=== PATIENT | male | born 1955 | race Caucasian/White ===

== ENCOUNTER 2018-04-12 15:53 | Inpatient (IN) | payer OTHER ==
--- OUTSIDE RECORDS SUMMARY | 2018-04-12 16:34 | XMS REPORT | Clinical Summary ---
:1955 Author Organization [facility] Address [address] [place] [address] Care Team Providers Name Role Phone Gareth Gordillo MD Primary Care Provider Unavailable Allergies No Known Allergies Current Medications Prescription Sig. Disp. Refills Start Date End Date Status carvedilol (COREG) 25 02/25/2016 Active MG tablet losartan (COZAAR) 100 05/07/2016 Active MG tablet spironolactone 02/25/2016 Active (ALDACTONE) 25 MG tablet metFORMIN 05/07/2016 Active (GLUCOPHAGE) 500 MG tablet furosemide (LASIX) 40 05/07/2016 Active MG tablet amLODIPine (NORVASC) 04/02/2016 Active 5 MG tablet ibuprofen-famotidine Take 800 mg Active (DUEXIS) 800-26.6 mg by mouth 2 tablet (two) times a day. lisinopril Take 1 90 tablet 0 08/08/2017 Active (PRINIVIL,ZESTRIL) 20 tablet (20 mg tablet mg total) by mouth daily. simvastatin (ZOCOR) Take 1 90 tablet 1 05/28/2016 05/28/2017 80 MG tablet tablet (80 mg total) by mouth every evening. lisinopril TAKE 1 90 tablet 1 11/19/2016 08/07/2017 Discontinued (PRINIVIL,ZESTRIL) 20 TABLET DAILY mg tablet Active Problems No known active problems Encounters Date Type Specialty Care Team Description 08/07/2017 Refill Sports Medicine Gareth Gordillo MD after 04/11/2017 Family History Medical History Relation Name Comments Old age Father Cancer Mother Relation Name Status Comments Father Mother Social History Tobacco Use Types Packs/Day Years Used Date Former Smoker Tobacco Cessation: Counseling Given: No Alcohol Use Drinks/Week oz/Week Comments Yes social Sex Assigned at Date Recorded Not on file Last Filed Vital Signs Not on file Plan of Treatment Health Maintenance Due Date Last Done Comments COLON CANCER SCREENING 2004 SHINGRIX VACCINE (#1) 2004 ZOSTER VACCINE 2014 INFLUENZA VACCINE 05/03/2018 Results Not on fileafter 04/11/2017 Insurance Payer Benefit Plan / Group Subscriber ID Type Phone Address [employer] PPO OPEN CHOICE xxxxxxxxx PPO y [phone] [id number]
[2018-04-12] MEDS ORDERED: GLUCAGON 1 MG/VIAL IM PRN (16:46)
[2018-04-12] MEDS ORDERED: D50W 25 GM/50 ML SYRINGE IV PRN (16:46)
[2018-04-12 17:22] LABS: Urine Appearance CLOUDY; Urine Bilirubin NEGATIVE (NEG); Urine Blood 3+ (NEG); Urine Color YELLOW; Urine Glucose 1+ (NEG); Urine Protein 2+ (NEG); Urine Specific Gravity 1.025 (1.005-1.030); Urine Urobilinogen 0.2 mg/dL (0.2-1.0); Urine pH 5.5 (5.0-7.0)
[2018-04-12 17:23] LABS: Absolute Lymphocytes (CBC) 1.3 K/uL (0.7-4.9); Absolute Monocytes 1.8 K/uL (0.1-1.3); Absolute Neutrophil 15.8 K/uL (1.8-8.0); Basophils % 0.6 % (0-1.3); Eosinophils % 0.5 % (0-4.4); Hematocrit 39.2 % (39.6-49.0); Lymphocytes % 6.6 % (15.3-44.8); MCH 28.9 pg (27.0-35.0); MCV 85.7 fL (80-100); MPV 9.1 fL (7.6-11.3); Monocytes % 9.7 % (3.3-12.3); RBC Red Blood Cell Count 4.57 M/uL (4.33-5.43)
[2018-04-12] MEDS: NA CHLORIDE 0.9% 1,000 ML IV SCH (17:29)
[2018-04-12] MEDS: CEFTRIAXONE/SWI 1gm 1 GM/10 ML SYR IVP SCH (17:30)
[2018-04-12] MEDS: ACETAMINOPHEN 500 MG TAB PO PRN ×2 (17:30→22:16)
[2018-04-12 17:31] LABS: Albumin 3.9 g/dL (3.4-5.0); Bilirubin Total 0.9 mg/dL (0.2-1.0); Magnesium 1.5 mg/dL (1.8-2.4); Potassium 3.8 mmol/L (3.5-5.1); Protein, Total 7.9 g/dL (6.4-8.2)
[2018-04-12 17:33] LABS: Urine Bacteria >50 /HPF (NONE SEEN); Urine Culture Reflex Order NOT NEEDED; Urine RBC 20-50 /HPF (NONE SEEN); Urine Sperm PRESENT (NONE SEEN)
[2018-04-12] MEDS ORDERED: Magnesium Sulfate 2gm IVPB 2 G/50 ML BAG IV ONE (20:00)
[2018-04-12] MEDS ORDERED: POTASSIUM 25 MEQ EFFERV TAB PO ONE (20:00)
[2018-04-12] MEDS: ENOXAPARIN 40 MG/0.4 ML SQ SCH (20:20)
[2018-04-12] MEDS: INSULIN -REGULAR HUMAN 50 UNIT/0.5 ML ML SQ SCH (21:00)
[2018-04-13] MEDS: ACETAMINOPHEN 500 MG TAB PO PRN ×5 (02:05→23:44)
[2018-04-13] MEDS: NA CHLORIDE 0.9% 1,000 ML IV SCH ×3 (02:06→16:40)
[2018-04-13 03:44] LABS: Magnesium 1.7 mg/dL (1.8-2.4); Potassium 3.7 mmol/L (3.5-5.1)
[2018-04-13] MEDS ORDERED: Magnesium Sulfate 1gm IVPB 1 GM/50 ML BAG IV ONE (04:30)
--- NOTE | 2018-04-13 05:16 | HP ---
Date of Admission: 04/12/2018 Chief Complaint: Fever, chills. History Of Present Illness: This is a 62-year-old very pleasant male patient, who called my office w ith complaints of fever and chills today. The patient was seen on 04/10/2018, which was just about 2 days ago, with urinary problem and he was having some burning sensation on urination and urinary erica quency, that was noted on 03/21/2018. At that time urinalysis was done at office, which showed urina ry tract infection and was treated with Bactrim and his symptoms resolved. On 04/08/2018, he started to have urinary complaints and this time he only had urinary frequency problem. No gross hematuria. No abdominal pain. No fever. No chills. No dysuria. The patient was evaluated at the office 2 da ys ago for this complaint and once again there was no dysuria, only complaint he had was urinary freq uency. Urinalysis at office showed moderate protein, large amount of glucose, large amount of blood but no evidence of any leukocytes or nitrites. Urine culture and urinalysis were ordered just to be on safe side to make sure there was no infection and that result is pending and our plan was to sched ule outpatient abdominal ultrasound and bladder ultrasound, but meanwhile, the patient called today c omplaining of fever and chills with his ongoing urinary complaints, which is urinary frequency, but o nce again no dysuria. After he called office, he was asked to come in right away. He was examined a nd decision was made to admit him to the hospital as he was having these complaints of fever, chills, feeling weak, somewhat lightheaded and was complaining of some back pain in the posterior flank klaudia on. Denies any nausea, vomiting, or diarrhea. No cough, cold, congestion. I was concerned about po ssibility of acute pyelonephritis and also we need to rule out any possibility of underlying stone or any other kidney problems like that. Arrangements were completed for him to be admitted to the hosp ital directly for further evaluation and management of this problem. Allergies: NO KNOWN ALLERGIES. Medications: Amlodipine 10 mg daily; aspirin 81 mg daily; carvedilol 25 mg 2 times a day; losartan 1 00 mg p.o. daily; Duexis 800/26.6 mg 1 tablet 3 times a day; Januvia 100 mg daily; lisinopril 20 mg d aily; metformin 500 mg, the patient takes 2 tablets 2 times a day, which was recently increased from 1 tablet 2 times a day; simvastatin 80 mg p.o. daily. Review of Systems: Genitourinary: As mentioned above. Constitutional: As mentioned above. All other systems reviewed and negative. Past Medical History: Significant for chronic systolic congestive heart failure, hypertension, mixed hyperlipidemia, type 2 diabetes mellitus. Past Surgical History: Presence of AICD, placement in 2008 and surgery for meniscus tear. Family History: Significant for hypertension, lymphoma. Social History: Negative for smoking, alcohol use. Physical Examination: Vital Signs: When he came into office today, his weight 241 pounds, height 71 inches, blood pressure 127/76, respiratory rate 18, pulse 111, temperature 102.8. General: Awake, alert, oriented, not in distress. HEENT: Head atraumatic, normocephalic. Conjunctivae nonerythematous. Sclerae white. Mouth, no thr ush or edema noted. Ears/Nose, no mass, lesion, discharge noted. Neck: Supple. No JVD, lymph nodes, bruit, thyromegaly noted. Lungs: Bilateral good equal air entry. Clear to auscultation. No rhonchi. No rales. Heart: Normal heart sounds, no murmur or gallop. Abdomen: Soft, bowel sounds normal. No guarding, rigidity, tenderness, mass, hepatosplenomegaly, dis tention, or bruit noted. Extremities: No leg edema. No calf tenderness. Skin: No rash, ulcer, cellulitis. Lymphatics: No lymph node enlargement in neck, supraclavicular, infraclavicular region. Neuro: No focal neurological deficit. Chest: Unremarkable. External Genitalia: Deferred. Rectal: Deferred. Laboratory Data: After the patient was admitted to the hospital, further lab results include white c ount 19.1, hemoglobin 13.2, platelets 215. Sodium 140, potassium 3.8, chloride 105, bicarb 27, BUN 1 9, creatinine 1.10, glucose 162, magnesium 1.5. Liver function tests unremarkable. Procalcitonin 0. 49, lactic acid level 2.4. Urinalysis; 3+ blood, positive nitrite, esterase 3+, wbc 20 to 50, bacter ia more than 50. Impression: 1.Acute pyelonephritis. 2.Hypomagnesemia. 3.Anemia. 4.Congestive heart failure, chronic, systolic. 5.Hypertension. 6.Mixed hyperlipidemia. 7.Type 2 diabetes mellitus. Plan: Admit the patient to hospital for further evaluation and management of this problem. The lauren ent is appropriate for inpatient and is expected to spend 2 midnights in hospital. We will continue home medications per order. DVT prophylaxis will be given using Lovenox. IV fluid will be given. I V antibiotics, ceftriaxone will be started. We will follow up on blood culture and urine culture. D epending on blood culture and urine culture result, we will decide definitive antibiotic according to the culture results. We will go ahead and get abdominal and renal ultrasound and if necessary, we m ight order CT scan per kidney stone protocol. Details and plan of treatment discussed with him. I w ill see him tomorrow for followup. GABRIEL/MODL Voice ID: [id number]
[2018-04-13] MEDS ORDERED: KCL 20 MEQ/100 mL IVPB 20 MEQ/100 ML BAG IV SCH ×2 (06:00→20:00)
[2018-04-13] MEDS: INSULIN -REGULAR HUMAN 50 UNIT/0.5 ML ML SQ SCH ×4 (07:30→21:00)
--- NOTE | 2018-04-13 09:03 | RAD REPORT ---
EXAM DESCRIPTION: US - Renal Ultrasound-Complete - 04/13/2018 8:32 am CLINICAL HISTORY: . Hematuria/pyelonephritis COMPARISON: 2008 FINDINGS: The right kidney measures 13 cm with a normal echotexture. The left kidney measures 13 cm with a normal echotexture. A 1.3 centimeter cyst extends off of the le ft kidney. Hydronephrosis is not seen. A renal abscess is not visualized IMPRESSION: 1.3 centimeter left renal cyst
--- NOTE | 2018-04-13 09:08 | RAD REPORT ---
EXAM DESCRIPTION: US - Urinary Bladder - 04/13/2018 8:32 am CLINICAL HISTORY: Hematuria FINDINGS: Bladder volume equals 190 cc. A bladder mass is not seen. A bladder calculus is not visualized. The bladder wall does not appear to be significantly thickened. No ascites is noted. IMPRESSION: Unremarkable bladder ultrasound
--- NOTE | 2018-04-13 09:15 | RAD REPORT ---
EXAM DESCRIPTION: CT - Abdomen Pelvis Wo Contrast - 04/13/2018 8:34 am CLINICAL HISTORY: Abdominal pain hematuria COMPARISON: 2008 TECHNIQUE: Computed axial tomography of the abdomen and pelvis was obtained. IV and oral contrast we re not requested. All CT scans are performed using dose optimization technique as appropriate and may include automated exposure control or mA/KV adjustment according to patient size. FINDINGS: The evaluation of solid organs, vessels and bowel is limited secondary to the lack of con trast administration. The liver, spleen, pancreas, adrenals and right kidney appear grossly normal. A 1.3 centimeter cyst e xtends off of the left kidney. The appendix is normal. There is no evidence of diverticulitis. Moderate anterior subluxation of L5 on S1 is seen with spondylolysis at L5. Postsurgical changes involve the stomach IMPRESSION: No acute abnormality is displayed.
[2018-04-13] MEDS: CARVEDILOL 25 MG TAB PO SCH ×2 (09:28→21:12)
[2018-04-13] MEDS: CEFTRIAXONE/SWI 1gm 1 GM/10 ML SYR IVP SCH ×2 (09:29→21:16)
[2018-04-13] MEDS: Levofloxacin500mg IV 500 MG/100 ML BAG IV SCH (10:31)
[2018-04-13 17:32] LABS: Absolute Lymphocytes (CBC) 1.3 K/uL (0.7-4.9); Absolute Neutrophil 11.6 K/uL (1.8-8.0); Basophils % 0.5 % (0-1.3); Eosinophils % 0.2 % (0-4.4); Hematocrit 34.6 % (39.6-49.0); Lymphocytes % 9.5 % (15.3-44.8); MCH 29.1 pg (27.0-35.0); MCV 84.3 fL (80-100); MPV 8.9 fL (7.6-11.3); Monocytes % 6.9 % (3.3-12.3); RBC Red Blood Cell Count 4.11 M/uL (4.33-5.43)
[2018-04-13 17:45] LABS: Magnesium 2.1 mg/dL (1.8-2.4); Potassium 3.8 mmol/L (3.5-5.1)
[2018-04-13] MEDS: ENOXAPARIN 40 MG/0.4 ML SQ SCH (21:13)
[2018-04-13] MEDS: ATORVASTATIN 40 MG TAB PO SCH (21:15)
[2018-04-14] MEDS: NA CHLORIDE 0.9% 1,000 ML IV SCH (00:48)
--- NOTE | 2018-04-14 01:28 | PN ---
Date of Progress Note: 04/13/2018 Subjective: The patient was seen this morning for followup and he was seen this evening as well. Th is morning when I saw him, he had no new complaints. No nausea or vomiting. No chest pain. No shor tness of breath. He still had some urinary frequency and urgency, but it was somewhat better. No dy suria and no hematuria. When I saw him this evening, he was feeling significantly better. His tempe rature has started to come down throughout the day today, and he still has some urinary urgency but i t is much better. No dysuria. As the temperature came down during the course of day today, he start ed to feel much better. Objective: Vital Signs: Reviewed. HEENT Examination: Unremarkable. Lungs: Clear to auscultation. Heart: Heart sounds normal. Abdomen: Soft. Bowel sounds normal. No guarding, rigidity, tenderness, or distention. Back: No evidence of CVA tenderness and his back pain problem has improved. Extremities: No leg edema. Laboratory Data: Sodium 137, potassium 3.7, chloride 103, bicarb 26, BUN 15, creatinine 1, glucose 1 93, magnesium 1.7. The patient had repeat CBC and chemistry this afternoon, and results reviewed. H is white count is down to 14,000 range. Blood culture; positive Gram-negative rods. Urine culture; Gram-negative rods. Definite identification and sensitivity results pending. His CAT scan of abdome n without contrast; it was ordered to be done per kidney stone protocol, and I did talk to radiologis t and he reported there is no evidence of any kidney stone or any hydronephrosis. Renal and bladder ultrasound, unremarkable except the renal cyst. Impression: 1.Sepsis. 2.Acute pyelonephritis. 3.Hypertension. 4.Diabetes mellitus. Plan: We will continue current medication which is ceftriaxone. We will add Levaquin as per order t his morning. We will continue these 2 different antibiotics until we get final report on the culture and sensitivity result, and then we will decide culture specific antibiotics. Continue IV fluid. W e will repeat blood work tomorrow. Ambulation was encouraged. Continue current DVT prophylaxis. Th e patient is expected to spend weekend in the hospital. Earliest discharge depending on his clinical condition will be beginning part of next week, and details on plan of treatment discussed with him. This evening when I saw him, he was feeling much better since his temperature came down. I did talk to patient and informed him that he will need to have evaluation done with help of urologist on an o utpatient basis after he recovers from this illness. GABRIEL/MODL Voice ID: [id number] Report ID: [id number]
[2018-04-14 05:08] LABS: Absolute Lymphocytes (CBC) 1.7 K/uL (0.7-4.9); Absolute Neutrophil 9.8 K/uL (1.8-8.0); Basophils % 1.1 % (0-1.3); Eosinophils % 0.3 % (0-4.4); Hematocrit 31.9 % (39.6-49.0); MCH 29.7 pg (27.0-35.0); MCV 83.8 fL (80-100); MPV 9.5 fL (7.6-11.3); Monocytes % 8.3 % (3.3-12.3); RBC Red Blood Cell Count 3.81 M/uL (4.33-5.43)
[2018-04-14 05:21] LABS: Magnesium 2.1 mg/dL (1.8-2.4); Potassium 3.5 mmol/L (3.5-5.1)
[2018-04-14] MEDS ORDERED: POTASSIUM 25 MEQ EFFERV TAB PO ONE (07:00)
[2018-04-14] MEDS: INSULIN -REGULAR HUMAN 50 UNIT/0.5 ML ML SQ SCH ×4 (07:30→20:40)
[2018-04-14] MEDS: Levofloxacin500mg IV 500 MG/100 ML BAG IV SCH (08:28)
[2018-04-14] MEDS: CARVEDILOL 25 MG TAB PO SCH ×2 (08:28→20:39)
[2018-04-14] MEDS: SITAGLIPTIN PHOS 100 MG TAB PO SCH (08:28)
[2018-04-14] MEDS: CEFTRIAXONE/SWI 1gm 1 GM/10 ML SYR IVP SCH ×2 (08:28→20:41)
[2018-04-14] MEDS: ACETAMINOPHEN 500 MG TAB PO PRN ×2 (08:29→18:02)
[2018-04-14] MEDS: METFORMIN HCL 500 MG TAB PO SCH ×2 (08:29→20:39)
--- NOTE | 2018-04-14 12:41 | PN ---
Date of Progress Note: 04/14/2018 Subjective: The patient was seen this morning for followup. He was lying in bed, not in distress, f eeling much better. No shortness of breath. Denies any dysuria. His urinary frequency and urgency problem have resolved. Objective: Vital Signs: Reviewed. HEENT: Unremarkable. Lungs: Clear to auscultation. Heart: Heart sounds normal. Abdomen: Soft, bowel sounds normal. No guarding, rigidity, tenderness, or distention. Extremities: No leg edema. Laboratory Data: White count 12.7, hemoglobin 11.3, platelets 161. Sodium 137, potassium 3.5, chlor elaine 104, bicarb 26, BUN 12, creatinine 1, glucose 216. Urine culture and blood culture growing gram- negative rods, definite result pending. Impression: 1.Sepsis. 2.Acute pyelonephritis. 3.Hypertension. 4.Diabetes mellitus. Plan: We will discontinue IV fluid. Continue ceftriaxone and Levaquin until we get the final cultur e results, then we will decide which particular antibiotic to continue. The patient will remain in [facility] over the weekend and I will see him tomorrow for followup. We will start his diabetes me dication, metformin and Januvia per order, continue sliding scale insulin. His last temperature this morning was 97.9 and blood pressure is stable. Ambulation was encouraged. I did talk to the patien t about importance of seeing urologist on outpatient basis for further evaluation and management. GABRIEL/MODL Voice ID: [id number] Report ID: [id number]
[2018-04-14] MEDS: ATORVASTATIN 40 MG TAB PO SCH (20:39)
[2018-04-14] MEDS: ENOXAPARIN 40 MG/0.4 ML SQ SCH (20:39)
[2018-04-14] MEDS: DIPHENHYDRAMINE 25 MG TAB/CAP PO PRN (21:25)
[2018-04-15] MEDS: ACETAMINOPHEN 500 MG TAB PO PRN ×4 (03:49→20:39)
[2018-04-15 04:59] LABS: Potassium 3.7 mmol/L (3.5-5.1)
[2018-04-15] MEDS ORDERED: POTASSIUM CL SA 10 MEQ TAB PO ONE (05:28)
[2018-04-15] MEDS: INSULIN -REGULAR HUMAN 50 UNIT/0.5 ML ML SQ SCH ×4 (07:30→20:42)
[2018-04-15] MEDS: METFORMIN HCL 500 MG TAB PO SCH ×2 (07:52→20:39)
[2018-04-15] MEDS: CARVEDILOL 25 MG TAB PO SCH ×2 (07:52→20:39)
[2018-04-15] MEDS: Levofloxacin500mg IV 500 MG/100 ML BAG IV SCH (07:53)
[2018-04-15] MEDS: SITAGLIPTIN PHOS 100 MG TAB PO SCH (07:53)
[2018-04-15] MEDS: CEFTRIAXONE/SWI 1gm 1 GM/10 ML SYR IVP SCH ×2 (07:53→20:40)
[2018-04-15] MEDS: LISINOPRIL 20 MG TAB PO SCH (08:27)
--- NOTE | 2018-04-15 12:54 | PN ---
Date of Progress Note: 04/15/2018 Subjective: The patient was seen this morning for followup. Lying in bed, not in distress denies an y complaints. No diarrhea. No abdominal pain. Had a bowel movement on a daily basis for last 2-3 d ays. No chest pain. No shortness of breath. No back pain. No urinary complaints. Objective: Vital signs: Reviewed. He still had a low-grade fever last night, around 4 a.m. This m orning he had 100.2 degree Fahrenheit temperature. Blood pressure was 146/66 at that time. Last blo od pressure 137. HEENT: Unremarkable. Lungs: Clear to auscultation. Heart: Heart sounds normal. Abdomen: Soft. Bowel sounds normal. No guarding, rigidity, tenderness, or distention. Extremities: No leg edema. Laboratory Data: Sodium 139, potassium 3.7, chloride 106, bicarb 25, BUN 12, creatinine 0.90, glucos e 158. Fingerstick blood sugar readings reviewed. Urine culture growing E. coli. Blood culture, gr am-negative rods. Final result pending. Impression: 1.Sepsis. 2.Acute pyelonephritis. 3.Hypertension. 4.Type 2 diabetes mellitus. Plan: We will continue current medications. We will go ahead and continue Rocephin and Levaquin. A ntihypertensive medication lisinopril will be started. We will continue metformin, Januvia, and slid ing scale insulin for diabetes control. Ambulation was encouraged. We will keep the patient in hosp ital on IV antibiotics over the weekend. Earliest possible discharge is day after tomorrow if he is afebrile. If he continues to have fever, we will have to do imaging studies of kidneys to make sure that he is not having any complications from this pyelonephritis. Details were discussed with the patient. GABRIEL/MODL Voice ID: [id number] Report ID: [id number]
[2018-04-15] MEDS: ATORVASTATIN 40 MG TAB PO SCH (20:38)
[2018-04-15] MEDS: DIPHENHYDRAMINE 25 MG TAB/CAP PO PRN (20:39)
[2018-04-15] MEDS: ENOXAPARIN 40 MG/0.4 ML SQ SCH (20:39)
[2018-04-16] MEDS: ACETAMINOPHEN 500 MG TAB PO PRN ×2 (03:57→15:13)
[2018-04-16 04:59] LABS: Absolute Lymphocytes (CBC) 1.5 K/uL (0.7-4.9); Absolute Monocytes 0.8 K/uL (0.1-1.3); Absolute Neutrophil 4.7 K/uL (1.8-8.0); Basophils % 0.8 % (0-1.3); Eosinophils % 2.6 % (0-4.4); Hematocrit 32.8 % (39.6-49.0); Lymphocytes % 20.8 % (15.3-44.8); MCH 29.6 pg (27.0-35.0); MCV 83.3 fL (80-100); MPV 8.9 fL (7.6-11.3); Monocytes % 11.7 % (3.3-12.3); RBC Red Blood Cell Count 3.93 M/uL (4.33-5.43)
[2018-04-16 05:10] LABS: Magnesium 1.8 mg/dL (1.8-2.4); Potassium 3.8 mmol/L (3.5-5.1)
[2018-04-16] MEDS ORDERED: POTASSIUM 25 MEQ EFFERV TAB PO ONE (05:31)
[2018-04-16] MEDS ORDERED: MAGNESIUM SULFATE 1 gm IVPB 1 GM/100 ML BAG IV ONE (05:31)
[2018-04-16] MEDS ORDERED: Magnesium Sulfate 1gm IVPB 1 GM/50 ML BAG IV ONE (06:00)
[2018-04-16] MEDS: INSULIN -REGULAR HUMAN 50 UNIT/0.5 ML ML SQ SCH ×4 (07:30→20:59)
[2018-04-16] MEDS: SITAGLIPTIN PHOS 100 MG TAB PO SCH (07:33)
[2018-04-16] MEDS: METFORMIN HCL 500 MG TAB PO SCH ×2 (07:33→16:28)
[2018-04-16] MEDS: CARVEDILOL 25 MG TAB PO SCH ×2 (07:38→21:05)
[2018-04-16] MEDS: CEFTRIAXONE/SWI 1gm 1 GM/10 ML SYR IVP SCH ×2 (07:38→21:03)
[2018-04-16] MEDS: LISINOPRIL 20 MG TAB PO SCH (07:38)
[2018-04-16] MEDS: Levofloxacin500mg IV 500 MG/100 ML BAG IV SCH (10:00)
--- NOTE | 2018-04-16 14:52 | PN ---
Date of Progress Note: 04/16/2018 Subjective: The patient was seen this morning for followup. No new complaints, problems reported by the patient. He was feeling much better this morning. He was sitting in chair. Denied any complai nts. No back pain. No shortness of breath. No fevers, chills, nausea, vomiting. No abdominal pain . No dysuria or hematuria. No urinary frequency. Objective: Vital signs: Reviewed. He still has low-grade fever. The last temperature was 99.2 deg rony Fahrenheit. HEENT: Examination unremarkable. Lungs: Clear to auscultation. No rhonchi. No rales. Heart: Heart sounds normal. Abdomen: Soft, bowel sounds normal. No guarding, rigidity, tenderness, or distention. Extremities: No leg edema. Laboratory Data: White count 7.3, hemoglobin 11.6, platelets 203. Sodium 138, potassium 3.8, chlori de 103, bicarb 26, BUN 12, creatinine 1, glucose 190, magnesium 1.8. Fingerstick blood sugar reading s reviewed. Blood culture, all the blood cultures came back growing E. coli and urine culture growin g E. coli. Impression: 1.Sepsis, organism Escherichia coli. 2.Acute pyelonephritis, organism Escherichia coli. 3.Hypertension. 4.Diabetes mellitus. Plan: We will go ahead and continue current antibiotic, which is Rocephin and Levaquin. Continue cu rrent antihypertensive and diabetes management. Possible discharge to go home in next day or 2 days depending on his condition. Details of plan of treatment discussed with the patient. GABRIEL/MODL Voice ID: [id number] Report ID: [id number]
[2018-04-16] MEDS: ENOXAPARIN 40 MG/0.4 ML SQ SCH (21:04)
[2018-04-16] MEDS: ATORVASTATIN 40 MG TAB PO SCH (21:07)
[2018-04-16] MEDS: DIPHENHYDRAMINE 25 MG TAB/CAP PO PRN (21:08)
[2018-04-17] MEDS: INSULIN -REGULAR HUMAN 50 UNIT/0.5 ML ML SQ SCH ×2 (07:30→11:17)
[2018-04-17] MEDS: SITAGLIPTIN PHOS 100 MG TAB PO SCH (08:47)
[2018-04-17] MEDS: CARVEDILOL 25 MG TAB PO SCH (08:48)
[2018-04-17] MEDS: METFORMIN HCL 500 MG TAB PO SCH (08:48)
[2018-04-17] MEDS: CEFTRIAXONE/SWI 1gm 1 GM/10 ML SYR IVP SCH (08:49)
[2018-04-17] MEDS: LISINOPRIL 20 MG TAB PO SCH (08:51)
[2018-04-17] MEDS: Levofloxacin500mg IV 500 MG/100 ML BAG IV SCH (08:56)
--- NOTE | 2018-04-18 06:54 | DS ---
Date of Discharge: 04/17/2018 Disposition: Discharged to go home. Physical Examination: HEENT: Unremarkable. Lungs: Clear to auscultation. Heart: Sounds normal. Abdomen: Soft. Bowel sounds normal. No guarding, rigidity, tenderness, or distention. Extremities: No leg edema. Hospital Course: This is a 62-year-old male patient, admitted to the hospital with complaints of fev er and chills. Please see dictated H and P for more information. After the patient was evaluated at the office, he was admitted to the hospital. His urinalysis was abnormal, consistent with urinary t ract infection. Blood culture and urine culture were drawn, and he was started on empiric antibiotic which was ceftriaxone. His initial white count was 19,000. His blood culture came back positive fo r Gram-negative rods and we added Levaquin the day after admission and the ceftriaxone was continued. With this combination of two different antibiotic therapy, he started to feel better, his temperatu re slowly started coming down, and he started feeling overall better. His appetite returned and he h ad some back pain when he came in, which completely resolved and his urinary frequency completely res olved. He never had any dysuria. He started tolerating diet very well, ambulating well. His home m edications were continued per order. Urine culture and blood culture came back E. coli, and this curtis teria was sensitive to multiple different antibiotics including ceftriaxone and Levaquin that patient was receiving during this hospitalization. CAT scan of the abdomen per kidney stone protocol was or dered and that came back negative for any kidney stone or any other acute findings. It did show pres ence of benign-appearing renal cyst and renal ultrasound also revealed the same finding. Bladder ult rasound was negative. I have informed the patient that he should follow up with the urologist for fu rther workup and he should follow up with urologist in about 3 weeks. Names of local urologists give n to him and he will talk to his family members and then make a decision which particular urologist veronica puente would like to see and if he needs help to schedule appointment he will contact my office. The lauren ent was discharged to go home in stable condition with following discharge medications and instructio ns. 1.Continue all prior home medications and he was made aware that there is a good possibility that florencia lozada's medication list may not be accurate and he needs to continue to take his medication at home the way he was taking prior to this admission. 2.Take Levaquin 500 mg p.o. daily for 2 weeks. 3.Follow up at my office in 2 weeks and follow up with urologist in 3 weeks. Laboratory Data: Labs done during this hospitalization include white count when he came in was 19.1, hemoglobin 13.2, platelets 215, last white count yesterday 7.3, hemoglobin 11.6, platelets 203. Viktoria brea was unremarkable except magnesium was low which was corrected. Final Diagnoses: 1.Sepsis, organism Escherichia coli. 2.Acute pyelonephritis, organism Escherichia coli. 3.Anemia, unspecified. 4.Hypomagnesemia. 5.Congestive heart failure, chronic, systolic. 6.Hypertension. 7.Mixed hyperlipidemia. 8.Type 2 diabetes mellitus. GABRIEL/MODL Voice ID: [id number] Report ID: [id number]
== END 2018-04-17 12:43 | disposition home or self-care (01) | DRG 872 ==
LOC: 2ND 16:31
PROVIDERS: ADMIT Internal Medicine; ATTEND Internal Medicine
DX: A41.53 Sepsis due to Serratia (principal); N10 Acute pyelonephritis; I50.22 Chronic systolic (congestive) heart failure; N28.1 Cyst of kidney, acquired; D64.9 Anemia, unspecified; E83.42 Hypomagnesemia; I11.0 Hypertensive heart disease with heart failure; E78.2 Mixed hyperlipidemia; E11.9 Type 2 diabetes mellitus without complications; Z79.84 Long term (current) use of oral hypoglycemic drugs; Z79.82 Long term (current) use of aspirin; Z95.810 Presence of automatic (implantable) cardiac defibrillator
CPT/HCPCS: 36415; 74176; 76770; 76857; 80048; 80053; 81001; 82962; 83605; 83735; 84145; 85025; 87040; 87077; 87086; 87088; 87186; 87205; J0696; J1650; J3475; J7030

== ENCOUNTER 2020-08-27 10:50 | Emergency (ER) | payer OTHER ==
--- OUTSIDE RECORDS SUMMARY | 2020-08-27 11:13 | XMS REPORT | Continuity of Care Document ---
:1955 Author Organization [facility] t Address [address] [place] [address] [address] [place] [address] Care Team Providers Name Role Phone Rand MCGARRY, Yris. Primary Care Physician Provider, Urgent Care Attending Clinician Unavailable Yris Gordillo MD. Attending Clinician Payers Payer Name Policy Type Policy Effective Date Expiration Date Sour ce Number MEDICAREMEDICARE PART [id number] 2019 Main[employer] aaron Yris AND 00:00:00 [place] [id number] [place] [place] P[facility] OPEN [id number] 2000 [place] [id number] 2001-P 00:00:00 Met alycia Khan Problems This patient has no known problems. Allergies, Adverse Reactions, Alerts This patient has no known allergies or adverse reactions. Family History Family Member Diagnosis Comments Start Date Stop Date Source Natural father Old age [facility] thodist Natural mother Cancer [facility] thodi Social History Social Habit Start Date Stop Date Quantity Comments Source Sex Assigned At [facility] ethodist Tobacco use and 2020-06-20 2020-06-20 Never used [facility] ethodist exposure 00:00:00 00:00:00 Alcohol intake 2020-06-20 2020-06-20 Current drinker [place] [facility] 00:00:00 00:00:00 of alcohol (finding) Alcohol Comment 2016-05-28 2016-05-28 social [facility] ethodist 00:00:00 00:00:00 History of 1973-02-04 2015-09-11 Current smoker [place] [facility] tobacco use 00:00:00 00:00:00 Smoking Status Start Date Stop Date Source Former smoker 2020-06-20 00:00:00 2020-06-20 00:00:00 Arthur Myles Medications Ordered Filled Start Stop Current Ordering Indication Dosage Frequency Signature Comments Components Source Medication Medication Date Date Medication? Clinician (SIG) Name Name ibuprofen-f Yes 800mg Q.5D Take 800 [place] amotidine 9-18 mg by [facility] (DUEXIS) 10:58: mouth 2 st 800-26.6 mg 01 (two) tablet times a day. gabapentin Yes Arthur (NEURONTIN) 8-26 [facility] 100 mg 00:00: st capsule 00 simvastatin Yes Judy torres (ZOCOR) 80 7-28 [facility] MG tablet 00:00: st 00 lisinopril 2016-10 Yes 20mg QD Take 1 [place] (PRINIVIL,Z 1-06 tablet (20 Me [facility] ESTRIL) 20 00:00: mg total) st mg tablet 00 by mouth daily. losartan Yes Arthur (COZAAR) 8-05 [facility] 100 MG 00:00: st tablet 00 metFORMIN Yes Arthur (GLUCOPHAGE 8-05 [facility] ) 500 MG 00:00: st tablet 00 furosemide Yes Gibson (LASIX) 40 8-05 [facility] MG tablet 00:00: st 00 amLODIPine Yes [place] (NORVASC) 5 7-01 [facility] MG tablet 00:00: st 00 carvedilol Yes Gibson (COREG) 25 5-25 [facility] MG tablet 00:00: st 00 spironolact Yes Judy torres one 5-25 [facility] (ALDACTONE) 00:00: st 25 MG 00 tablet Vital Signs Vital Name Observation Time Observation Value Comments Source Systolic blood 2020-06-20 10:54:00 106 mm[Hg] [place] [facility] pressure Diastolic blood 2020-06-20 10:54:00 67 mm[Hg] [place] [facility] pressure Heart rate 2020-06-20 10:54:00 60 /min Arthur Myles Respiratory rate 2020-06-20 10:54:00 20 /min Chase Mlyes Body weight 2020-06-20 10:54:00 98.884 kg Arthur Myles BMI 2020-06-20 10:54:00 30.40 kg/m2 Arthur Myles Procedures Procedure Date / Time Performing Clinician Source Performed [place] ARTHROCENTESIS 2020-07-04 13:20:00 Guillermina Gordillo Jewish ASPIR&/INJ MAJOR JT/BURSA W/US [place] ARTHROCENTESIS 2020-06-27 13:00:00 Guillermina Gordillo Jewish ASPIR&/INJ MAJOR JT/BURSA W/US [place] ARTHROCENTESIS 2020-06-20 10:40:00 Guillermina Gordillo Jewish ASPIR&/INJ MAJOR JT/BURSA W/US Plan of Care Planned Activity Planned Date Details Comments Source Future Scheduled 2020-05-03 INFLUENZA VACCINE Judy torres [facility] Test 00:00:00 [code = INFLUENZA VACCINE] Future Scheduled 2019 65+ PNEUMOCOCCAL Arthur [facility] Test 00:00:00 VACCINE (1 of 1 - PPSV23) [code = 65+ PNEUMOCOCCAL VACCINE (1 of 1 - PPSV23)] Future Scheduled 2004 COLONOSCOPY SCREENING Ho [facility] Test 00:00:00 [code = COLONOSCOPY SCREENING] Future Scheduled 2004 SHINGLES VACCINES (#1) [place] [facility] Test 00:00:00 [code = SHINGLES VACCINES (#1)] Encounters Start End Encounter Admission Attending Care Care Encounter Source Date/Time Date/Time Type Type Clinicians Facility Department ID 2020-08-19 2020-08-19 Urgent Provider, [facility] [id number] 13:24:20 13:44:20 [facility] [id number] [facility] [id number] Professio [id number] nal [address] 2020-07-04 2020-07-04 Outpatient [facility] [id number] [place] 00:00:00 00:00:00 , GUILLERMINA [address] 2020-06-27 2020-06-27 Outpatient [facility] [id number] [place] 00:00:00 00:00:00 GUILLERMINA [address] 2020-06-20 2020-06-20 Outpatient [facility] [id number] [place] 00:00:00 00:00:00 , GUILLERMINA [address] Results Test Description Test Time Test Comments Results Result Sour e Comments Large Joint Guillermina Gordillo [place] Arthrocentesis: 2 07/04/2020 1:24 Jewish knee, Bilateral 13:20:00 PMLarge Joint knee Arthrocentesis: knee, Bilateral kneeConsent given by: patientSupporting DocumentationIndicatio ns: pain Procedure DetailsUltrasound guided: yesLocation: knee - Bilateral knee Right side:Needle size: 25 GApproach: lateralRight knee medications administered: 2 mL sodium hyaluronate (viscosup) 30 mg/2 mLPatient tolerance: patient tolerated the procedure well with no immediate complications Left side:Needle size: 25 GApproach: lateralLeft knee medications administered: 2 mL sodium hyaluronate (viscosup) 30 mg/2 mLPatient tolerance: patient tolerated the procedure well with no immediate complications Large Joint 2020-06-04 Guillermina Gordillo [place] Arthrocentesis: 5 06/27/2020 1:32 Jewish knee, Bilateral 13:00:00 PMLarge Joint knee Arthrocentesis: knee, Bilateral kneeConsent given by: patientSupporting DocumentationIndicatio ns: pain Procedure DetailsUltrasound guided: yesLocation: knee - Bilateral knee Right side:Needle size: 25 GApproach: lateralRight knee medications administered: 2 mL sodium hyaluronate (viscosup) 30 mg/2 mLPatient tolerance: patient tolerated the procedure well with no immediate complications Left side:Needle size: 25 GApproach: lateralLeft knee medications administered: 2 mL sodium hyaluronate (viscosup) 30 mg/2 mLPatient tolerance: patient tolerated the procedure well with no immediate complications Large Joint 2020-06-03 Guillermina Gordillo [place] Arthrocentesis: 8 06/20/2020 11:33 Jewish knee, Bilateral 10:40:00 AMLarge Joint knee Arthrocentesis: knee, Bilateral kneeConsent given by: patientSupporting DocumentationIndicatio ns: pain Procedure DetailsUltrasound guided: yesLocation: knee - Bilateral knee Right side:Needle size (right): 18.Approach: lateralRight knee medications administered: 2 mL sodium hyaluronate (viscosup) 30 mg/2 mLAspirate amount: 27 mLPatient tolerance: patient tolerated the procedure well with no immediate complications Left side:Needle size (left): 18.Approach: lateralLeft knee medications administered: 2 mL sodium hyaluronate (viscosup) 30 mg/2 mLAspirate amount: 20 mLPatient tolerance: patient tolerated the procedure well with no immediate complications
--- OUTSIDE RECORDS SUMMARY | 2020-08-27 11:13 | XMS REPORT | Clinical Summary ---
:1955 Author Organization [facility] Address [address] [place] [address] Care Team Providers Name Role Phone Guy Gordillo MD Primary Care Provider Allergies No Known Active Allergies Medications Medication Sig Dispensed Refills Start Date End Date Status carvedilol (COREG) 25 MG 0 02/25/2016 Active tablet losartan (COZAAR) 100 MG 0 05/07/2016 Active tablet spironolactone 0 02/25/2016 Acti ve (ALDACTONE) 25 MG tablet metFORMIN (GLUCOPHAGE) 0 05/07/2016 Active 500 MG tablet furosemide (LASIX) 40 MG 0 05/07/2016 Active tablet amLODIPine (NORVASC) 5 0 04/02/2016 Active MG tablet ibuprofen-famotidine Take 800 mg by 0 Active (DUEXIS) 800-26.6 mg mouth 2 (two) tablet times a day. lisinopril Take 1 tablet 90 tablet 0 08/08/2017 Acti ve (PRINIVIL,ZESTRIL) 20 mg (20 mg total) by tablet mouth daily. gabapentin (NEURONTIN) 0 05/28/2020 Active 100 mg capsule simvastatin (ZOCOR) 80 0 04/29/2020 Active MG tablet Active Problems No known active problems Encounters Date Type Specialty Care Team Description 07/04/2020 Office Visit Sports Gareth Muro MD osteoarthritis of knee (Primary Dx) 07/04/2020 Travel 06/27/2020 Office Visit Gareth Martino MD osteoarthritis of knee (Primary Dx) 06/27/2020 Travel 06/20/2020 Office Visit Gareth Martino, MD osteoarthritis of knee (Primary Dx) 06/20/2020 Travel 06/13/2020 Travel after 08/27/2019 Surgical History Surgery Date Site/Laterality Comments TONSILLECTOMY Medical History Medical History Date Comments Arthritis Diabetes mellitus (HCC) Hypertension Diabetes (HCC) 3 years ago Family History Medical History Relation Name Comments Old age Father Cancer Mother Rosamaria White Ballard Had can cer Relation Name Status Comments Father Mother Rosamaria Vargus Ballard Social History Tobacco Use Types Packs/Day Years Used Date Former Smoker 0 0 02/04/1973 - 1 11/12/2014 Smokeless Tobacco: Never Used Tobacco Cessation: Counseling Given: No Alcohol Use Drinks/Week oz/Week Comments Yes 0 Glasses of wine 0.0 social 0 Cans of beer 0 Shots of liquor 0 Standard drinks or equivalent Sex Assigned at Date Recorded Not on file Last Filed Vital Signs Vital Sign Reading Time Taken Comments Blood Pressure 106/67 06/20/2020 10:54 AM CDT Pulse 60 06/20/2020 10:54 AM CDT Temperature - - Respiratory Rate 20 06/20/2020 10:54 AM CDT Oxygen Saturation - - Inhaled Oxygen Concentration - - Weight 98.9 kg (218 lb) 06/20/2020 10:54 AM CDT Height - - Body Mass Index 30.4 05/28/2016 1:43 PM CDT Plan of Treatment Health Maintenance Due Date Last Done Comments COLONOSCOPY SCREENING 2004 SHINGLES VACCINES (#1) 2004 65+ PNEUMOCOCCAL VACCINE (1 of 1 - PPSV23) 2019 INFLUENZA VACCINE 05/03/2020 Procedures Procedure Name Priority Date/Time Associated Diagnosis Comme nts [place] ARTHROCENTESIS Routine 07/04/2020 1:20 Bilateral primary R esults for this ASPIR&/INJ MAJOR PM CDT osteoarthritis of proced ure are in JT/BURSA W/US knee the results section. [place] ARTHROCENTESIS Routine 06/27/2020 1:00 Bilateral primary R esults for this ASPIR&/INJ MAJOR PM CDT osteoarthritis of proced ure are in JT/BURSA W/US knee the results section. HI ARTHROCENTESIS Routine 06/20/2020 10:40 Bilateral primary R esults for this ASPIR&/INJ MAJOR AM CDT osteoarthritis of proced ure are in JT/BURSA W/US knee the results section. after 08/27/2019 Results Large Joint Arthrocentesis: knee, Bilateral knee (07/04/2020 1:20 PM CDT) Specimen Narrative Performed At Gareth Gordillo MD 0 1:24 PM Large Joint Arthrocentesis: knee, Bilate ral knee Consent given by: patient Supporting Documentation Indications: pain Procedure Details Ultrasound guided: yes Location: knee - Bilateral knee Right side: Needle size: 25 G Approach: lateral Right knee medications administered: 2 mL sodium hyalu ronate (viscosup) 30 mg/2 mL Patient tolerance: patient tolerated the procedure wel l with no immediate complications Left side: Needle size: 25 G Approach: lateral Left knee medications administered: 2 mL sodium hyalur addy (viscosup) 30 mg/2 mL Patient tolerance: patient tolerated the procedure wel l with no immediate complications Large Joint Arthrocentesis: knee, Bilateral knee (06/27/2020 1:00 PM CDT) Specimen Narrative Performed At Gareth Gordillo MD 0 1:32 PM Large Joint Arthrocentesis: knee, Bilate ral knee Consent given by: patient Supporting Documentation Indications: pain Procedure Details Ultrasound guided: yes Location: knee - Bilateral knee Right side: Needle size: 25 G Approach: lateral Right knee medications administered: 2 mL sodium hyalu ronate (viscosup) 30 mg/2 mL Patient tolerance: patient tolerated the procedure wel l with no immediate complications Left side: Needle size: 25 G Approach: lateral Left knee medications administered: 2 mL sodium hyalur addy (viscosup) 30 mg/2 mL Patient tolerance: patient tolerated the procedure wel l with no immediate complications Large Joint Arthrocentesis: knee, Bilateral knee (06/20/2020 10:40 AM CDT) Narrative Performed At Gareth Gordillo MD 0 11:33 AM Large Joint Arthrocentesis: knee, Bilate ral knee Consent given by: patient Supporting Documentation Indications: pain Procedure Details Ultrasound guided: yes Location: knee - Bilateral knee Right side: Needle size (right): 18. Approach: lateral Right knee medications administered: 2 mL sodium hyalu ronate (viscosup) 30 mg/2 mL Aspirate amount: 27 mL Patient tolerance: patient tolerated the procedure wel l with no immediate complications Left side: Needle size (left): 18. 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
--- OUTSIDE RECORDS SUMMARY | 2020-08-27 11:13 | XMS REPORT | Summary of Care ---
:1955 Author Organization [facility] Address [address] [place] [id number] Care Team Providers Name Role Phone Mark Gongora Primary Care Provider Reason for Visit Reason Comments Sore Throat 4 days Encounter Details Date Type Department Care Team Description 08/19/2020 Urgent Care [facility] Family Adrian Freeman, ABHILASH [address] [place] [address] [id number] Sore throat (Primary Dx); [facility] [place] Provider, [facility] Exposure to SARS-associated coronavirus; [address] [place] [address] [place], [place] [id number] Allergies No Known Allergiesdocumented as of this encounter (statuses as of 08/19/2020) Medications Medication Sig Dispensed Refills Start Date End Date Status amLODIPine 5 mg tablet 0 07/23/2020 Active carvediloL 25 mg 0 07/14/2020 Ac tive tablet JARDIANCE 25 mg Tab 0 06/29/2020 Active gabapentin 100 mg 0 05/28/2020 A ctive capsule ibuprofen-famotidine Take 800 mg by 0 Active 800-26.6 mg per tablet mouth. VASCEPA 1 gram capsule 0 07/14/2020 Active lisinopriL 20 mg 0 06/05/2020 Ac tive tablet metFORMIN 1,000 mg 0 07/14/2020 Active tablet nystatin 100,000 APPLY TO AFFECTED 0 06/17/2020 Active unit/gram cream AREA OF SKIN 2 TIMES A DAY. 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 documented as of this encounter Last Filed Vital Signs Vital Sign Reading Time Taken Comments Blood Pressure 92/56 08/19/2020 1:28 PM PRINT DEVELOPER Pulse 82 08/19/2020 1:28 PM PRINT DEVELOPER Temperature 36.8 C (98.3 F) 08/19/2020 1:28 PM PRINT DEVELOPER Respiratory Rate 18 08/19/2020 1:28 PM PRINT DEVELOPER Oxygen Saturation 97% 08/19/2020 1:28 PM PRINT DEVELOPER Inhaled Oxygen Concentration - - Weight 100.7 kg (222 lb) 08/19/2020 1:28 PM PRINT DEVELOPER Height 180.3 cm (5' 11") 08/19/2020 1:28 PM PRINT DEVELOPER Body Mass Index 30.96 08/19/2020 1:28 PM PRINT DEVELOPER documented in this encounter Patient Instructions Patient InstructionsNuris Freeman FNP - 08/19/2020 1:20 PM PRINT DEVELOPER Patient Education Self-Care for Sore Throats Sore throats happen for many reasons, such as colds, allergies, cigarette smoke, air pollution, and infections caused by viruses or bacteria. In any case, your throat becomes red and sore. Your goal for self-care is to reduce your discomfort while giving your throat a chance to heal. Moisten and soothe your throat Tips include the following: Try a sip of water first thing after waking up. Keep your throat moist by drinking6 or more glasses of clear liquids every day. Run a cool-air humidifier in your room overnight. Stay away from cigarette smoke. Check the air quality index,if air pollution gives you a sore throat. On high pollution days, tryto limit outdoor time. Suck on throat lozenges, cough drops, hard candy, ice chips, or frozen fruit- juice bars. Use the sugar-free versions if your diet or medical condition requires them. Gargle to ease irritation Gargling every hour or2 can ease irritation. Try gargling with1 of these solutions: 1/4teaspoon of salt in1/2 cup of warm water An emsq-gzc-hbyykfe anesthetic gargle Use medicine for more relief Dfzm-mrw-hhtkcsc medicine can reduce sore throat symptoms. Ask your pharmacist if you have questionsabout which medicine to use. To prevent possible medicine interactions, let the pharmacist know whatmedicines you take. To decrease symptoms: Ease pain with anesthetic sprays. Aspirin or an aspirin substitute also helps. Remember, never give aspirin to anyone 18 or younger. Don't take aspirin if you are alreadytaking blood thinners. For sore throats caused by allergies, try antihistamines to block the allergic reaction. Unless a sore throat is caused by a bacterial infection, antibiotics wont help you. Prevent future sore throats Prevention tips include: Stop smoking or reduce contact with secondhand smoke. Smoke irritates the tender throat lining. Limit contact with pets and with allergy-causing substances, such as pollen and mold. Wash your hands often when youre around someone with a sore throat or cold. This will keep viruses or bacteria from spreading. Limit outdoor time when air pollution is bad. Dont strain your vocal cords. When to call your healthcare provider Contact your healthcare provider if you have: Fever of 100.4F (38.0C) or higher, or as directed by your healthcare provider White spots on the throat Great Trouble swallowing A skin rash Recent exposure to someone else with strep bacteria Severe hoarseness and swollen glands in the neck or jaw Call 911 Call 911 if any of the following occur: Trouble breathing or catching your breath Drooling and problems swallowing Wheezing Unable to talk Feeling dizzy or faint Feeling of doom [employer] last reviewed this educational content on 06/03/201919999183-3397 [employer] [place] [address], [place] [address]. All rights reserved. This information is not intended as a substitute for professional medical care. Always follow your healthcare professional's instructions. Patient Education Treating Diarrhea Diarrhea happens when you have loose, watery, or frequent bowel movements. It is a common problem with many causes. Most cases of diarrhea clear up on their own. But certain cases may need treatment. Be sure to see your healthcare providerif your symptoms don't get better in a few days. Getting relief Treatment of diarrhea depends on its cause. Diarrhea caused by bacterial or parasite infection is often treated with antibiotics. Diarrhea caused by other factors, such as a stomach virus, often improves with simple home treatment. The tips below may also help ease your symptoms. Drink plenty of fluids. This helps prevent too much fluid loss (dehydration). Water, clear soups,and electrolyte solutions are good choices. Don't take alcohol, coffee, tea, or milk. These can irritate your intestines andmake symptoms worse. Suck on ice chips if drinking makes you queasy. Return to your normal diet slowly. You may want to eat bland foods at first, such as rice and toast. Also, you may need to stay away from certain foods for a while, such as dairy products. These canmake symptoms worse. Ask yourhealthcare providerif there are any other foods you should stay away from. If you were prescribed antibiotics, take them as directed. Don't take anti-diarrhea medicines without asking yourproviderfirst. Call your healthcare provider Call your healthcare provider if you have any of the following: A fever of 100.4 F ( 38.0C) or higher, or as directed by your provider Chills Severe pain Worsening diarrhea or diarrhea for more than 2 days Bloody vomit or stool Signs of dehydration (dizziness, dry mouth and tongue, rapid pulse, dark urine) [employer] last reviewed this educational content on 03/03/201919992296-8556 [employer]. [address] [place] [address], [place] [address]. All rights reserved. This information is not intended as a substitute for professional medical care. Always follow your healthcare professional's instructions. T DEVELOPER documented in this encounter Progress Notes Nuris Freeman FNP - 08/19/2020 1:20 PM CST Cc: Chief Complaint Patient presents with Sore Throat 4 days Sincere Ballard is a 65 year old male. Patient had some fever, diarrhea over the weekend as well as fatigue which has since resolved exceptsore throat. 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 Medications Outpatient Medications Prior to Visit Medication Sig Dispense Refill amLODIPine 5 mg tablet carvediloL 25 mg tablet gabapentin 100 mg capsule ibuprofen-famotidine 800-26.6 mg per tablet Take 800 mg by mouth. JANUVIA 100 mg tablet JARDIANCE 25 mg Tab lisinopriL 20 mg tablet metFORMIN 1,000 mg tablet nystatin 100,000 unit/gram cream APPLY TO AFFECTED AREA OF SKIN 2 TIMES A DAY. simvastatin 80 mg tablet VASCEPA 1 gram capsule No facility-administered medications prior to visit. Histories No past medical history on file. No past surgical history on file. Social History Socioeconomic History Marital status: Spouse name: Not on file Number of children: Not on file Years of education: Not on file Highest education level: Not on file Occupational History Not on file Social Needs Financial resource strain: Not on file Food insecurity Worry: Not on file Inability: Not on file Transportation needs Medical: Not on file Non-medical: Not on file Tobacco Use Smoking status: Never Smoker Smokeless tobacco: Never Used Substance and Sexual Activity Alcohol use: Not on file Drug use: Not on file Sexual activity: Not on file Lifestyle Physical activity Days per week: Not on file Minutes per session: Not on file Stress: Not on file Relationships Social connections Talks on phone: Not on file Gets together: Not on file Attends yarsanism service: Not on file Active member of club or organization: Not on file Attends meetings of clubs or organizations: Not on file Relationship status: Not on file Intimate partner violence Fear of current or ex partner: Not on file Emotionally abused: Not on file Physically abused: Not on file Forced sexual activity: Not on file Other Topics Concern Not on file Social History Narrative Not on file No family history on file. Review of Systems Constitutional: Positive for fever. Negative for chills and fatigue. Respiratory: Negative. Negative for cough, chest tightness, shortness of breath and wheezing. Cardiovascular: Negative. Negative for chest pain and palpitations. Gastrointestinal: Positive for diarrhea. Neurological: Negative. Negative for syncope, weakness, light-headedness and headaches. Psychiatric/Behavioral: Negative. Endocrine: Endocrine negative Vital Signs BP 92/56 | Pulse 82 | Temp 36.8 C (98.3 F) (Oral) | Resp 18 | Ht 5' 11" (1.803 m) | Wt 222 lb (100.7 kg) | SpO2 97% | BMI 30.96 kg/m Physical Exam Vitals signs and nursing note reviewed. Constitutional: General: He is not in acute distress. Appearance: He is well-developed. HENT: Head: Normocephalic. Right Ear: Hearing, tympanic membrane, ear canal and external ear normal. Left Ear: Hearing, tympanic membrane, ear canal and external ear normal. Nose: Nose normal. Right Sinus: No maxillary sinus tenderness or frontal sinus tenderness. Left Sinus: No maxillary sinus tenderness or frontal sinus tenderness. Mouth/Throat: Lips: [place]. Mouth: Mucous membranes are moist. Pharynx: Oropharynx is clear. Eyes: Conjunctiva/sclera: Conjunctivae normal. Pupils: Pupils are equal, round, and reactive to light. Cardiovascular: Rate and Rhythm: Normal rate and regular rhythm. Heart sounds: Normal heart sounds. No murmur. No friction rub. No gallop. Pulmonary: Effort: Pulmonary effort is normal. No respiratory distress. Breath sounds: Normal breath sounds. No stridor. No wheezing or rales. Chest: Chest wall: No tenderness. Abdominal: General: Bowel sounds are normal. Palpations: Abdomen is soft. Tenderness: There is no abdominal tenderness. Lymphadenopathy: Head: Right side of head: No submental, submandibular, tonsillar, preauricular or posterior auricular adenopathy. Left side of head: No submental, submandibular, tonsillar, preauricular or posterior auricular adenopathy. Cervical: No cervical adenopathy. Skin: General: Skin is warm and dry. Capillary Refill: Capillary refill takes less than 2 seconds. Neurological: Mental Status: He is alert and oriented to person, place, and time. Psychiatric: Mood and Affect: Mood normal. Assessment/Plan Sore throat (primary encounter diagnosis) Comment: strep neg Plan: Dont smoke, and avoid secondhand smoke. Try lozenges OTC as directed Drink warm liquids to soothe the throat and help thin mucus. Avoid alcohol, spicy foods, and acidic drinks such as orange juice. These can irritate the throat. Gargle with warm saltwater (1 teaspoon of salt to 8 ounces of warm water). Use a humidifier to keep air moist and relieve throat dryness. Try tshj-ytg-fyydgxq pain relievers such as acetaminophen or ibuprofen. Use as directed, and dont exceed the recommended dose. Exposure to SARS-associated coronavirus Comment: Plan: COVID-19 (MOLECULAR TESTING NUCLEIC ACID AMPLIFICATION), COVID-19 (MOLECULAR TESTING NUCLEIC ACID AMPLIFICATION), POCT GRP A STREP (MOLECULAR) - Quarantine until your COVID results are back Criteria met - Covid testing - pending. This test can take 2-3 days to be resulted. While the test is pending...Please socially isolate your self - do not go out to stores or out in public. We will contact you once we have the results. If you are negative - continue with symptomatic treatment. (see below) Patients who have positive results will be contacted by the health department to enforce quarantine measures and for additional community contact tracing. The Infection Control Department will also undertake evaluation of exposures in our healthcare facility. If symptoms worsen - please call your Primary Care Doctor - do not go into the clinic. Call first. Diarrhea, unspecified type Comment: resolved Plan: Plan of care, desired health behaviors, goals, and medication discussed with patient. Education resources provided and reviewed with AVS. Patient/guardian/family verbalized understanding & agrees to plan of care. This visit did not involve counseling and coordination that comprised more than 50% of the visit time. If applicable, the [facility] database was accessed to review any controlled substance prescription claims data. The [employer] prescription claims data in [facility] was reviewed to assess patient compliance with the medication treatment plan. T DEVELOPER documented in this encounter Plan of Treatment Name Type Priority Associated Diagnoses Order S chedule COVID-19 (MOLECULAR LAB Routine Exposure to Expected : 08/19/2020, TESTING SARS-associated Expires: 021 NUCLEIC ACID coronavirus AMPLIFICATION) Health Maintenance Due Date Last Done Comments HEPATITIS C (HCV) SCREEN 1955 Depression Screening 1966 DTaP,Tdap,and Td Vaccines (1 - Tdap) 1973 COLON CANCER SCREENING ANNUAL FIT/FOBT 2004 COLON CANCER SCREENING FIT DNA EVERY 3 YEARS 2004 COLON CANCER SCREENING SIGMOIDOSCOPY EVERY 5 YEARS 2004 COLONOSCOPY 2004 Colorectal Cancer Screening 2004 Zoster Recombinant Vaccine (SHINGRIX) (1 of 2) 2004 Medicare Wellness Visit 2019 PNEUMOCOCCAL VACCINES 65+ (1 of 1 - PPSV23) 2019 INFLUENZA VACCINE (#1) 2020 documented as of this encounter Procedures Procedure Name Priority Date/Time Associated Diagnosis Comme nts POCT GRP A STREP Routine 08/19/2020 1:59 PM Exposure to Resu lts for this (MOLECULAR) PRINT DEVELOPER SARS-associated procedure ar e in coronavirus the results section. documented in this encounter Results POCT GRP A STREP (MOLECULAR) (08/19/2020 1:59 PM PRINT DEVELOPER) Pathologist Sig nature POCT GP A STREP neg Negative - Negative Specimen Swab - THROAT documented in this encounter Visit Diagnoses Diagnosis Sore throat - Primary Acute pharyngitis Exposure to SARS-associated coronavirus Diarrhea, unspecified type documented in this encounter Additional Health Concerns Infection Onset Date Last Indicated Resolved Time COVID-19 Rule Out 08/19/2020 08/19/2020 documented as of this encounter Insurance Payer Benefit Plan / Subscriber ID Effective Dates Phone Addre ss Type Group MEDICARE MEDICARE PART A [id number] 2019-Shamar [phone] [facility] [facility] Medicare & B t [id number] JACQUIE STEPHENS [phone] [employer] AETNA INDEMNITY [id number] 2019-Prese Indemnity nt documented as of this encounter
[2020-08-27] MEDS ORDERED: ACETAMINOPHEN 500 MG TAB ONE (12:06)
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
--- NOTE | 2020-08-27 12:16 | RAD REPORT ---
EXAM DESCRIPTION: RAD - Elbow Right 3 View - 08/27/2020 12:01 pm CLINICAL HISTORY: Elbow pain FINDINGS: No fracture or dislocation is seen.
--- NOTE | 2020-08-27 12:19 | RAD REPORT ---
EXAM DESCRIPTION: RAD - Lumbar Spine 3 Views - 08/27/2020 12:10 pm CLINICAL HISTORY: Back pain FINDINGS: Moderate anterior subluxation of L5 on S1. Spondylolysis L5. Marked disc space narrowing, osteophytes and subchondral sclerosis. Bones are osteoporotic. No acute fracture
--- NOTE | 2020-08-27 12:20 | RAD REPORT ---
EXAM DESCRIPTION: RAD - Shoulder Right 2 View - 08/27/2020 12:01 pm CLINICAL HISTORY: Right shoulder pain FINDINGS: No fracture or dislocation is seen. Small bony/calcific densities adjacent to the humeral head and inferior aspect of the scapula probabl y are chronic. The bones are osteoporotic
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
--- NOTE | 2020-08-27 12:25 | RAD REPORT ---
EXAM DESCRIPTION: RAD - Femur Right - 08/27/2020 12:11 pm CLINICAL HISTORY: Leg pain FINDINGS: No fracture is seen. Bones are osteoporotic. Marked osteoarthritis involves the knee If patient continues have symptoms to suggest an occult fracture then MRI would be recommended
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
[2020-08-27 14:33] VITALS: BP 106/65; TEMP 98.4; O2SAT 98
== END 2020-08-27 13:17 | disposition home or self-care (01) ==
LOC: ER 10:50
DX: M25.521 Pain in right elbow (principal); R51.9 Headache, unspecified; M25.511 Pain in right shoulder; V59.40XA Driver of pick-up truck or van injured in collision with unspecified motor vehicles in traffic accident, initial encounter; E11.9 Type 2 diabetes mellitus without complications
CPT/HCPCS: 70450; 72100; 72125; 72170; 99284